=== PATIENT | female | born 1950 | race Caucasian/White ===

== ENCOUNTER → 2024-08-22 | Outpatient (CLI) | payer MEDICARE, BC, SELFPAY ==
[2024-08-22 08:27] LABS: Collection Type, Urine Clean Catch
[2024-08-22 08:53] LABS: Basophils % (Auto) 1 % (0-2.5); Eosinophils # (Auto) 0.2 Thou/mm3 (0.0-0.5); Eosinophils % (Auto) 3 % (0-10); Hematocrit 42.2 % (36.0-46.0); Immature Granulocytes % (Auto) 1 % (0-0); Immature Granulocytes Auto 0.05 Thou/mm3 (0.00-0.00); Lymphocytes % (Auto) 32 % (10-50); Mean Corpuscular HGB Conc 33.2 g/dl (31.0-37.0); Mean Corpuscular Hemoglobin 28.9 pg (25.0-35.0); Mean Corpuscular Volume 87 fL (80-100); Monocytes # (Auto) 0.4 Thou/mm3 (0.0-0.8); Monocytes % (Auto) 7 % (0-12); Neutrophils # (Auto) 3.6 Thou/mm3 (1.8-7.7); Neutrophils % (Auto) 57 % (37-80); Nucleated Red Blood Cell % 0 /100 WBC (0); Platelet Count 262 Thou/mm3 (140-440); RDW Standard Deviation 43.1 fL (36.4-46.3); Red Blood Count 4.84 Miln/mm3 (4.00-5.20); White Blood Count 6.4 Thou/mm3 (3.6-11.0)
[2024-08-22 09:05] LABS: Vitamin B12 1885 pg/mL (211-911); Vitamin D 25 Hydroxy Total 22.5 ng/mL (7.3-40.2)
[2024-08-22 09:07] LABS: Alanine Aminotransferase 18 U/L (10-49); Albumin, Serum 4.4 gm/dL (3.4-4.8); Albumin/Globulin Ratio 1.8 (1.2-2.2); Alkaline Phosphatase 82 U/L (46-116); Anion Gap 8 (7-16); Aspartate Amino Transferase 19 U/L (0-34); BUN/Creatinine Ratio 23 Ratio (12-20); Bilirubin,Total 0.5 mg/dL (0.3-1.2); Blood Urea Nitrogen 18 mg/dL (9-23); Calcium 9.4 mg/dL (8.3-10.6); Calcium (Corrected) 9.4 mg/dL (8.5-10.1); Carbon Dioxide 25.9 mMol/L (20.0-31.0); Cardiac Risk Estimate 4.4 RATIO (3.7-5.6); Chloride 107 mMol/L (98-107); Cholesterol 224 mg/dL (132-200); Creatinine (Component) 0.8 mg/dL (0.6-1.3); Free T4 (Free Thyroxine) 0.96 ng/dL (0.89-1.76); Globulin 2.5 gm/dL (2.3-3.5); Glucose 89 mg/dL (74-106); HDL Cholesterol 51 mg/dL (40-60); LDL Cholesterol,Calculated 143 mg/dL (0-130); Osmolality,Calculated 282 (275-295); Potassium 4.4 mMol/L (3.4-5.1); Sodium 141 mMol/L (136-145); Total Protein 6.9 gm/dL (5.7-8.2); Triglycerides 148 mg/dL (30-150); eGFR > 60 See Note
[2024-08-22 10:51] LABS: Bilirubin,Urine Negative (Negative); Blood,Urine Negative (Negative); Clarity,Urine Clear (Clear/Hazy); Color,Urine Lt-Yellow (Lt Yel-Yel); Culture Indicated,Urine Not Indicated; Glucose, Urine Negative (Negative); Ketones,Urine Negative (Negative); Leukocyte Esterase,Urine Negative (Negative); Nitrite,Urine Negative (Negative); PH,Urine 6.5 (5.0-7.0); Protein,Urine Negative (Neg - Trace); RBC,Urine 4 /hpf (0-3); Specific Gravity,Urine 1.021 (1.001-1.035); Squamous Epithelial Cell,Urine 3 /hpf (0-5); Urobilinogen,Urine Negative mg/dL (0.0-1.0); WBC,Urine 1 /hpf (0-5)
== END | disposition home or self-care (01) ==
LOC: COPL 07:51
PROVIDERS: PCP Internal Medicine; Referring Provider Internal Medicine; Visit Provider Internal Medicine
DX: Z00.00 Encounter for general adult medical examination without abnormal findings (principal); E78.5 Hyperlipidemia, unspecified; I10 Essential (primary) hypertension; R03.0 Elevated blood-pressure reading, without diagnosis of hypertension; D51.9 Vitamin B12 deficiency anemia, unspecified; E55.9 Vitamin D deficiency, unspecified
CPT/HCPCS: 36415; 80053; 80061; 81001; 82306; 82607; 84439; 84443; 85025

== ENCOUNTER → 2025-01-26 | Outpatient (CLI) | payer MEDICARE, BC, SELFPAY ==
--- NOTE | 2025-01-26 10:45 | XR_ITS ---
Examination: Right knee 2 views Technique one AP lateral right knee 2 views Date and time: January 26, 2025 1123 hours INDICATIONS: Chronic knee pain years. FINDINGS: Prominent osteopenia Moderate narrowing medial joint space Mild osteoarthritis patellofemoral joint Small knee effusion No fracture IMPRESSION: Moderate narrowing medial joint space
--- NOTE | 2025-01-26 10:45 | XR_ITS ---
Examination: Bilateral knees 2 views TECHNIQUE: Bilateral AP knees standing single view, bilateral PA knees standing single view flexion Date and time: January 26, 2025 1120 hours INDICATIONS: Chronic knee pain. FINDINGS: Prominent osteopenia Moderate narrowing medial joint space right knee Moderate to advanced narrowing medial joint space left knee No fractures IMPRESSION: Moderate to advanced narrowing medial joint space left knee
== END | disposition home or self-care (01) ==
LOC: CDIM 10:40
PROVIDERS: PCP Internal Medicine; Referring Provider Orthopaedic Surgery; Visit Provider Orthopaedic Surgery
DX: M25.862 Other specified joint disorders, left knee (principal); M25.861 Other specified joint disorders, right knee
CPT/HCPCS: 73560; 73565

== ENCOUNTER → 2025-03-09 | Outpatient (CLI) | payer MEDICARE, BC, SELFPAY ==
--- NOTE | 2025-03-09 09:00 | XR_ITS ---
Exam: MRI knee without contrast, right Date and time of exam: March 09, 2025 at 1046 hours Technique: Multiple axial, coronal, and sagittal sections on the knee have been obtained. T2-Weighted sagittal, fat-suppressed images, TR 3,500, TE 62, T2 weighted coronal fat-saturated images, TR 3,500, TE 62 Proton density sagittal sections, TR 1800, TE 31. T-1 weighted coronal images, TR 524, TE 13.0 Findings: Medial meniscus anterior horn intact. Medial meniscus, body intact. Posterior horn medial meniscus small vertical tear outer one half posterior horn sagittal image 11. Lateral meniscus anterior horn intrasubstance degeneration Lateral meniscus, body is intact Posterior horn lateral meniscus is intact Anterior cruciate ligament mild sprain Posterior cruciate ligament appears intact. Knee effusion is small. Quadriceps and patellar tendons appear intact. There is no evidence of tendinosis. Inflammatory change or fracture of Hoffa's fat pad is not seen. Medial patellar facet demonstrates moderate thinning. Lateral patellar facet cartilage demonstrates moderate thinning. Trochlear cartilage demonstrates moderate thinning. Marrow signal adequate. Medial collateral ligament appears intact. No meniscocapsular separation is seen. Illiotibial band and fibular collateral ligament are intact. Biceps femoris tendons appear intact. Medial femoral condylar articular cartilage demonstrates moderate thinning. Lateral femoral condylar articular cartilage demonstratesmoderate thinning. Tibial plateau cartilage demonstrates moderate thinning. Impression: Vertical tear posterior horn medial meniscus Mild sprain anterior cruciate ligament
== END | disposition home or self-care (01) ==
LOC: SMRI 08:49
PROVIDERS: PCP Internal Medicine; Referring Provider Orthopaedic Surgery; Visit Provider Orthopaedic Surgery
DX: S83.241A Other tear of medial meniscus, current injury, right knee, initial encounter (principal); X58.XXXA Exposure to other specified factors, initial encounter; S83.511A Sprain of anterior cruciate ligament of right knee, initial encounter
CPT/HCPCS: 73721

== ENCOUNTER → 2025-04-02 | Outpatient (CLI) | payer MEDICARE, BC, SELFPAY ==
--- NOTE | 2025-04-02 10:55 | XR_ITS ---
Examination: CT soft tissue neck, without intravenous contrast. 2-D coronal reconstructions. 2-D sagittal reconstructions. Date and time of exam :April 02, 2025 1124 hours INDICATIONS: Left-sided neck swelling and pain beginning 6 days ago. CTDI: vol (mGy):15 DLP: (mGycm):400 Technique: 1.25 mm axial sections of the neck of the obtained. Coronal sagittal reconstructions Low dose protocols were performed. One or more of the following dose reduction techniques were used; automated exposure control, adjustment of the mA and/or KV according to patient size, use of iterative reconstruction technique. Findings: Symmetrical nasopharynx oropharynx Maxillary antra are clear Artifacts, dental Solid appearing mass in the left parotid gland, 11 mm The larynx appears normal Multiple subcentimeter thyroid nodules Normal epiglottis Advanced diffuse cervical degenerative disc disease IMPRESSION: Recommend MRI soft tissue neck follow-up pre and postcontrast to assess solid appearing mass in the left parotid gland
== END | disposition home or self-care (01) ==
LOC: CCTX 10:50
PROVIDERS: PCP Internal Medicine; Referring Provider Internal Medicine; Visit Provider Internal Medicine
DX: I89.8 Other specified noninfective disorders of lymphatic vessels and lymph nodes (principal)
CPT/HCPCS: 70490

== ENCOUNTER 2025-06-18 08:16 | Outpatient (AMB) | payer MEDICARE, BC, SELFPAY ==
[2025-06-18 08:32] VITALS: BP 176/93; PULSE 72; RESP 19; TEMP 35.9; O2SAT 95; BMI 32.8
--- NOTE | 2025-06-18 08:32 | ORTHONT_ITS ---
Vital signs 06/18/25 08:32 Height 1.68 m Height Method Stated Weight 92.079 kg Weight Measurement Method Standing Scale BMI 32.8 BP 176/93 H Blood Pressure Source Automatic Cuff Blood Pressure Location Left Upper Arm Position Sitting Respiration 19 Pulse 72 Pulse Source Monitor Temp 96.6 F L Temp Source Temporal Artery Scan Pulse Oximetry (%) 95 Oxygen Delivery Method Room Air Med/Allergies Allergies & Medications Allergies codeine Allergy (Severe, Verified 06/18/25 08:33) Unknown nitrofurantoin (From Macrobid) Allergy (Severe, Verified 06/18/25 08:33) Rash Medication Reconciliation A-F Betafood 2 cap PO TID 03/14/24 [History Confirmed 06/18/25] B6-Niacinamide 1 tab PO QDAY 03/14/24 [History Confirmed 06/18/25] Cardio-Plus 2 cap PO TID 03/14/24 [History Confirmed 06/18/25] Carditone 1 tab PO BID 03/14/24 [History Confirmed 06/18/25] Cataplex D 2 cap PO QDAY 03/14/24 [History Confirmed 06/18/25] Cataplexb2 2 cap PO TID 03/14/24 [History Confirmed 06/18/25] Immune Charge 1 cap PO BID 03/14/24 [History Confirmed 06/18/25] Iodoral 1 tab PO BID 03/14/24 [History Confirmed 06/18/25] Livit-2 1 tab PO TID 03/14/24 [History Confirmed 06/18/25] [place] 7 2 cap PO QDAY 03/14/24 [History Confirmed 06/18/25] Shilajeet Mumiyo 1 tab PO BID 03/14/24 [History Confirmed 06/18/25] Supramag 1 cap PO TID 03/14/24 [History Confirmed 06/18/25] astaxanthin 12 mg capsule 12 mg PO BID 03/14/24 [History Confirmed 06/18/25] coenzyme B51-[id number] E 100 mg-100 unit capsule 1 cap PO BID 03/14/24 [History Confirmed 06/18/25] digestive enzymes 1 cap PO BIDWMEAL 03/14/24 [History Confirmed 06/18/25] multivitamin 2 cap PO QDAY 03/14/24 [History Confirmed 06/18/25] progesterone 50 mg/mL intramuscular oil 50 mg QDAY 03/14/24 [History Confirmed 06/18/25] selenium 100 mcg tablet 100 mcg PO BID 03/14/24 [History Confirmed 06/18/25] thyroid (pork) 48.75 mg tablet 40 mg PO BID 03/14/24 [History Confirmed 06/18/25] Exam Exam Patient is in no acute distress and is cooperative with the examination today. Breathing is nonlabored. In no respiratory distress. Bilateral extremities were evaluated and demonstrates sensation intact to light touch. Palpable pedal pulses are present. No significant edema is present. Bilateral hips were examined. The patient has no pain with log roll of the hips. Internal rotation to 30 degrees and external rotation to 30 degrees is painless. Negative FADIR. The left knee was examined. The left knee is in varus alignment. Range of motion from 0-115 degrees. Knee is stable to varus and valgus as well as AP translation with <5mm. Patient has a negative McMurrays. There is no pain with patellofemoral compression and no crepitus noted. The knee is tender to palpation medially. The right knee was also examined. The right knee is in varus alignment. Range of motion from 0-120 degrees. Knee is stable to varus and valgus as well as AP translation with <5mm. Patient has a negative McMurrays. There is no pain with patellofemoral compression and no crepitus noted. The knee is tender to palpation medially. X-rays demonstrate moderate arthritis. She has an MRI of her right knee which demonstrates a meniscal tear of the lateral meniscus Assessment and Plan Problem List (1) Arthritis of both knees: Status: Acute Plan: Patient is a 75-year-old female with right knee pain and arthritis of the right knee. She has tried a prior gel injection ASSESSMENT AND PLAN 1. Right knee pain: The right knee pain began in January 2025 without any trauma. Imaging, including standing x-rays from 01/26/2025 and an MRI from 02/2025, shows moderate a rthritis and a meniscus tear. The pain is described as shooting and radiates, especially when sitting for long periods. The pain is located on the anterolateral side of the knee and is associated with swelling and clicking. The patient has tried Hymovis injections and diclofenac 50 mg pills, which provided some relief. She also uses heat, ice, and elevation for pain management. Arthroscopic surgery is not recommended due to the extent of arthritis. A cortisone injection will be administered today to reduce inflammation and improve motion. Diclofenac cream (Voltaren) is recommended as an alternative to oral diclofenac to avoid systemic side effects. The patient is advised to use ice for swelling and heat in the beginning of the day. Compression hose is recommended for support instead of a brace, which may cause constriction and swelling. A home exercise program and physical therapy will be prescribed to improve motion. Recommended exercises include using an elliptical, recumbent bike, and flat ground walking. If these measures do not provide sufficient relief, surgical options may be considered. Meloxicam is suggested as an alternative oral medication for arthritis if needed. A Harrison x-ray view may be ordered to get more information on the knee's condition. Recommend knee cortisone injection as patient would like to proceed with conservative treatment at this time. The risks and benefits of the procedure were reviewed with the patient and patient gave verbal consent to continue with the procedure. Procedure: performed by Dr. Cage Using sterile technique the Right knee was thoroughly prepped with alcohol, and approximately 1 cc of Depo-Medrol 80mg/mL and 4 cc of 0.2% ropivacaine was injected without resistance into the medial tibial femoral joint space. The patient tolerated the procedure. (2) Pain in right knee: Status: Acute Advanced Care Planning Discussion Advance care planning discussed with:: patient Office Procedures GNS Level of Care Nursing/Assessment Patient Status: Initial/New Patient Nursing Assessment/Reassesment: Medication Reconciliation, Update PMH in EMR and Vital Signs Coordination of Care: Complex Care and Chronic Disease 1-5, Education Complex Pt/Fam, Consent,records obtained, informed consent, 1 Ins Authorization, Lab and Imaging orders, Results/Orders obtained and Staff clarify orders New Patient Charge New Patient Point Assignment: 1124 New Patient Point Charge: PHARMACY TEACHER Level 4 (2616-1881) Surgical Proc/IM SQ injection Minor Surgical Procedure: Yes (RIGHT KNEE INJECTION) Medication Given Medication Given Medication Given: Yes Documented Dose Given: 1 Route: Infiitration Medication Given Medication Given Medication Given: Yes Documented Dose Given: 4 Route: Infiitration Office Meds methylprednisolone acetate 80 mg/mL suspension for injection Performing Provider: Joaquin Cage MD Performing Location: [facility] Administered by: Joaquin Cage MD on 06/18/25 08:55 Dose Route Admin Location Dispensed Lot Number Expiration Date Pack age [facility] Marker Hand 80 mg intra-articular 1 mL [id number] 03/18/27 [address]-1 7 [id number] [employer] ropivacaine (PF) 2 mg/mL (0.2 %) injection solution Performing Provider: Joaquin Cage MD Performing Location: [facility] Administered by: Joaquin Cage MD on 06/18/25 08:55 Dose Route Admin Location Dispensed Lot Number Expiration Date Pack age [facility] [place] Marker Hand 20 mL Infiltration 20 mL [id number] 09/18/27 22950-884-11 [id number] [facility] Intake Visit Data Collection New Patient or Established: New Patient (never been to [facility]) Reason for Visit:: RIGHT KNEE OA Seen by Clinical Staff ONLY (RN/MA): No PCP or OBGYN visit in last 3 months: Yes Hx Now: No Do You Feel Safe at Home: Yes Authorities Contacted: N/A Questionairres Past Medical History Past Medical History Have you ever been diagnosed with any of the following: Neurological Problems Seizures: No Cardiology Problems Congestive Heart Failure: No Valvular Heart Disease: Yes (mitral valve prolapse) Hypertension: No Respiratory Problems Chronic Obstructive Pulmonary Disease (COPD): No Asthma: No Bronchitis: No Emphysema: No Pneumonia: No Pulmonary Fibrosis: No Tuberculosis: No Pulmonary Embolism: No Pulmonary Edema: No Sleep Apnea: No CPAP Dependent: No Respiratory Aspiration: No Dyspnea: No Orthopnea: No Hx Cough: No Cough: No Wheezing: No Chest Deformities: No Smoking: No Smoking Cessation Counseling: No Smoking Exposure: No Tobacco Use: No Clubbing: No Exposure to Respiratory Irritants: No Intubation: No Stomache/Intestinal Problems Liver Cancer: No Hepatitis: No Cirrhosis: No Pancreatic Cancer: No Celiac Disease: No Gall Bladder Disease: No Gastrointestinal Bleed: No Esophageal Varices: No Gupta's Esophagus: No Colitis: No Ulcerative Colitis: No Diverticulitis: No Diverticulosis: No Ulcer: No Colorectal Cancer: No Irritable Bowel: No Crohn's Disease: No Obstructive Bowel: No Hiatal Hernia: No Hemorrhoids: Yes Gastroesophageal Reflux Disease: No Polyps: No Obesity: Yes Genital/Urinary Problems Chronic Kidney Disease: No Renal Disease: No Kidney Stones: Yes (many yrs ago) Polycystic Kidney Disease: No Neurogenic Bladder: No Inguinal Hernia: No Dialysis: No Reproductive Problems Previous Pregnancies: Yes Musculoskeletal Problems Arthritis: No Head,Eye,Nose,Throat Problems Cataracts: Yes (bilateral) Endocrine Problems Diabetes Mellitus Type 1: No Diabetes Mellitus Type 2: No Hypothyroidism: Yes (being monitor no meds) Blood Problems Anemia: Yes (yrs ago) Other Problems Hospitalization: No Shingles: No Falls: No Blood Transfusions: No Blood Transfusion Reaction: No Anesthesia Reactions: No Chemotherapy: No Radiation Therapy: No MRSA: No Chicken Pox: Yes Measles: Yes Cancer: Yes Subjective Visit Visit for: new patient, knee (RIGHT), x-rays (RESULTS) and MRI (RESULTS) Immunization / Flu Flu Vaccine in the Last 12 Months: No Flu Vaccine Exclusion Criteria: Refused by Patient History of Present Illness Chief complaint: RIGHT KNEE OA Date of injury / onset of symptoms: JANUARY 2025 Date of 1st surgery (if applicable): LEFT KNEE MENISCUS REPAIR HISTORY OF PRESENT ILLNESS IJoaquin, have obtained verbal consent from the patient, to be recorded during this encounter which may include, but not limited to, medical history, examination, treatment plans, and relevant health information.? Patient was informed that recording will be read and reviewed by myself before inclusion in the medical chart. The patient presents for evaluation of right knee pain. Ketty is a pleasant 75-year-old female with right knee pain. she reports that the onset of her right knee pain was in 01/2025, with no preceding trauma. The pain is described as shooting and radiating up and down her leg, particularly when sitting for extended periods. She also experiences swelling and clicking on the anterolateral side of the knee. Her left knee has also started to hurt. She has been managing the pain with heat, ice, and elevation. She has been using a brace for support but notes that it causes swelling and discomfort. She has not tried cortisone injections or diclofenac cream before. She has been taking diclofenac since 01/2025 and wishes to discontinue it. She has received two Hymovis injections from Dr. Wells, the first on 03/25/2025, and the second on 04/08/2025, which were postponed due to a parotid infection. She has undergone imaging studies including standing x-rays on 01/26/2025 and an MRI in 02/2025. She has a history of left knee meniscus repair. She has been prescribed meloxicam but prefers not to use it. She has a history of a root canal procedure, which has been aiding her sleep. PAST SURGICAL HISTORY: Left knee meniscus repair. Personal History Occupation: RETIRED Hobbies: [employer] Pain Pain level (0-10): 6 Pain duration: COMES AND GOES Pain location: outside (lateral) and anterior Pain quality: dull, aching and other (specify) (SWELLING) Pain timing: night and increases with activity Associated signs & symptoms: other (specify) (CLICKING) Ambulatory data Ambulatory device: none Treatments Number of previous injections: 2 Improvement with previous injections: No Number of Physical Therapy sessions: 0 Improvement with PT: No Improvement with NSAIDS: yes (DICLOFENAC 50MG) Review of Systems Review of Systems: All systems negative unless otherwise noted in HPI.
== END 2025-06-18 08:53 | disposition home or self-care (01) ==
LOC: HODSRG 08:16
PROVIDERS: PCP Internal Medicine; Referring Provider Internal Medicine; Supervising Provider Orthopaedic Surgery Adult Reconstructive Orthopaedic Surgery; Visit Provider Orthopaedic Surgery Adult Reconstructive Orthopaedic Surgery
DX: M25.561 Pain in right knee (principal); M17.0 Bilateral primary osteoarthritis of knee; E66.9 Obesity, unspecified; Z68.32 Body mass index [BMI] 32.0-32.9, adult
CPT/HCPCS: 20610; 99204; J1010; J2795; G0463

== ENCOUNTER 2025-07-09 08:38 | Outpatient (AMB) | payer MEDICARE, BC, SELFPAY ==
--- NOTE | 2025-07-09 08:46 | PD.ORTHCLVIS ---
Vital signs 07/09/25 08:51 Height 1.68 m Height Method Measured Weight 89.84 kg Weight Measurement Method Standing Scale BMI 31.8 BP 163/75 H Blood Pressure Source Automatic Cuff Blood Pressure Location Left Upper Arm Position Sitting Respiration 18 Pulse 65 Pulse Source Monitor Temp 96.4 F L Temp Source Temporal Artery Scan Pulse Oximetry (%) 97 Oxygen Delivery Method Room Air Med/Allergies Allergies & Medications Allergies codeine Allergy (Severe, Verified 07/09/25 08:52) Unknown nitrofurantoin (From Macrobid) Allergy (Severe, Verified 07/09/25 08:52) Rash Medication Reconciliation A-F Betafood 2 cap PO TID 03/14/24 [History Confirmed 07/09/25] B6-Niacinamide 1 tab PO QDAY 03/14/24 [History Confirmed 07/09/25] Cardio-Plus 2 cap PO TID 03/14/24 [History Confirmed 07/09/25] Carditone 1 tab PO BID 03/14/24 [History Confirmed 07/09/25] Cataplex D 2 cap PO QDAY 03/14/24 [History Confirmed 07/09/25] Cataplexb2 2 cap PO TID 03/14/24 [History Confirmed 07/09/25] Immune Charge 1 cap PO BID 03/14/24 [History Confirmed 07/09/25] Iodoral 1 tab PO BID 03/14/24 [History Confirmed 07/09/25] Livit-2 1 tab PO TID 03/14/24 [History Confirmed 07/09/25] Eaton 7 2 cap PO QDAY 03/14/24 [History Confirmed 07/09/25] Shilajeet Mumiyo 1 tab PO BID 03/14/24 [History Confirmed 07/09/25] Supramag 1 cap PO TID 03/14/24 [History Confirmed 07/09/25] astaxanthin 12 mg capsule 12 mg PO BID 03/14/24 [History Confirmed 07/09/25] coenzyme [id number]-[id number] E 100 mg-100 unit capsule 1 cap PO BID 03/14/24 [History Confirmed 07/09/25] digestive enzymes 1 cap PO BIDWMEAL 03/14/24 [History Confirmed 07/09/25] multivitamin 2 cap PO QDAY 03/14/24 [History Confirmed 07/09/25] progesterone 50 mg/mL intramuscular oil 50 mg QDAY 03/14/24 [History Confirmed 07/09/25] selenium 100 mcg tablet 100 mcg PO BID 03/14/24 [History Confirmed 07/09/25] thyroid (pork) 48.75 mg tablet 40 mg PO BID 03/14/24 [History Confirmed 07/09/25] Exam Exam Patient is in no acute distress and is cooperative with the examination today. Breathing is nonlabored. In no respiratory distress. Bilateral extremities were evaluated and demonstrates sensation intact to light touch. Palpable pedal pulses are present. No significant edema is present. Bilateral hips were examined. The patient has no pain with log roll of the hips. Internal rotation to 30 degrees and external rotation to 30 degrees is painless. Negative FADIR. The left knee was examined. The left knee is in varus alignment. Range of motion from 0-115 degrees. Knee is stable to varus and valgus as well as AP translation with <5mm. Patient has a negative McMurrays. There is no pain with patellofemoral compression and no crepitus noted. The knee is tender to palpation medially. The right knee was also examined. The right knee is in varus alignment. Range of motion from 0-120 degrees. Knee is stable to varus and valgus as well as AP translation with <5mm. Patient has a negative McMurrays. There is no pain with patellofemoral compression and no crepitus noted. The knee is tender to palpation medially. X-rays demonstrate moderate arthritis. She has an MRI of her right knee which demonstrates a meniscal tear of the lateral meniscus Assessment and Plan Problem List (1) Arthritis of both knees: Status: Acute Plan: Patient is a 75-year-old female with right knee pain and arthritis of the right knee. She has tried a prior gel injection ASSESSMENT AND PLAN 1. Right knee pain: The patient reports that her pain is improved as well as her range of motion. She should continue physical therapy and continue with anti-inflammatories as needed. At this point we can see her on an as-needed basis (2) Pain in right knee: Status: Acute Advanced Care Planning Discussion Advance care planning discussed with:: patient Office Procedures GNS Level of Care Nursing/Assessment Patient Status: Established Patient Nursing Assessment/Reassesment: Medication Reconciliation, Update PMH in EMR and Vital Signs Coordination of Care: Complex Care and Chronic Disease 1-5, Education Complex Pt/Fam, Consent,records obtained, informed consent, Results/Orders obtained and Staff clarify orders Established Patient Charge Established Patient Point Assignment: 95 Established Patient Point Charge: EP Level 3 (80-115) MA Intake Visit Data Collection New Patient or Established: Established Patient (seen at [facility] within 3 years) Reason for Visit:: F/U KNEE INJECTION Seen by Clinical Staff ONLY (RN/MA): No Scientific Systems Analyst Required: No PCP or OBGYN visit in last 3 months: Yes Hx Now: No Do You Feel Safe at Home: Yes Authorities Contacted: N/A Questionairres Past Medical History Past Medical History Have you ever been diagnosed with any of the following: Neurological Problems Seizures: No Cardiology Problems Congestive Heart Failure: No Valvular Heart Disease: Yes (mitral valve prolapse) Hypertension: No Respiratory Problems Chronic Obstructive Pulmonary Disease (COPD): No Asthma: No Bronchitis: No Emphysema: No Pneumonia: No Pulmonary Fibrosis: No Tuberculosis: No Pulmonary Embolism: No Pulmonary Edema: No Sleep Apnea: No CPAP Dependent: No Respiratory Aspiration: No Dyspnea: No Orthopnea: No Hx Cough: No Cough: No Wheezing: No Chest Deformities: No Smoking: No Smoking Cessation Counseling: No Smoking Exposure: No Tobacco Use: No Clubbing: No Exposure to Respiratory Irritants: No Intubation: No Stomache/Intestinal Problems Liver Cancer: No Hepatitis: No Cirrhosis: No Pancreatic Cancer: No Celiac Disease: No Gall Bladder Disease: No Gastrointestinal Bleed: No Esophageal Varices: No Gupta's Esophagus: No Colitis: No Ulcerative Colitis: No Diverticulitis: No Diverticulosis: No Ulcer: No Colorectal Cancer: No Irritable Bowel: No Crohn's Disease: No Obstructive Bowel: No Hiatal Hernia: No Hemorrhoids: Yes Gastroesophageal Reflux Disease: No Polyps: No Obesity: Yes Genital/Urinary Problems Chronic Kidney Disease: No Renal Disease: No Kidney Stones: Yes (many yrs ago) Polycystic Kidney Disease: No Neurogenic Bladder: No Inguinal Hernia: No Dialysis: No Reproductive Problems Previous Pregnancies: Yes Musculoskeletal Problems Arthritis: No Head,Eye,Nose,Throat Problems Cataracts: Yes (bilateral) Endocrine Problems Diabetes Mellitus Type 1: No Diabetes Mellitus Type 2: No Hypothyroidism: Yes (being monitor no meds) Blood Problems Anemia: Yes (yrs ago) Other Problems Hospitalization: No Shingles: No Falls: No Blood Transfusions: No Blood Transfusion Reaction: No Anesthesia Reactions: No Chemotherapy: No Radiation Therapy: No MRSA: No Chicken Pox: Yes Measles: Yes Cancer: Yes Subjective Visit Visit for: follow up visit and knee Immunization / Flu Flu Vaccine in the Last 12 Months: No Flu Vaccine Exclusion Criteria: Refused by Patient History of Present Illness Chief complaint: F/U KNEE INJECTION Date of injury / onset of symptoms: JANUARY 2025 Date of 1st surgery (if applicable): LEFT KNEE MENISCUS REPAIR HISTORY OF PRESENT ILLNESS IJoaquin, have obtained verbal consent from the patient, to be recorded during this encounter which may include, but not limited to, medical history, examination, treatment plans, and relevant health information.? Patient was informed that recording will be read and reviewed by myself before inclusion in the medical chart. The patient presents for evaluation of right knee pain. Ketty is a pleasant 75-year-old female with right knee pain. she reports that the onset of her right knee pain was in 01/2025, with no preceding trauma. The pain is described as shooting and radiating up and down her leg, particularly when sitting for extended periods. She also experiences swelling and clicking on the anterolateral side of the knee. Her left knee has also started to hurt. She has been managing the pain with heat, ice, and elevation. She has been using a brace for support but notes that it causes swelling and discomfort. She has not tried cortisone injections or diclofenac cream before. She has been taking diclofenac since 01/2025 and wishes to discontinue it. She has received two Hymovis injections from Dr. Wells, the first on 03/25/2025, and the second on 04/08/2025, which were postponed due to a parotid infection. She has undergone imaging studies including standing x-rays on 01/26/2025 and an MRI in 02/2025. She has a history of left knee meniscus repair. She has been prescribed meloxicam but prefers not to use it. She has a history of a root canal procedure, which has been aiding her sleep. Since we last saw her, and reports the pain has significantly improved. She is very happy PAST SURGICAL HISTORY: Left knee meniscus repair. Personal History Occupation: RETIRED Hobbies: [employer] Pain Pain level (0-10): 6 Pain duration: COMES AND GOES Pain location: outside (lateral) and anterior Pain quality: dull, aching and other (specify) (SWELLING) Pain timing: night and increases with activity Associated signs & symptoms: other (specify) (CLICKING) Ambulatory data Ambulatory device: none Treatments Number of previous injections: 2 Improvement with previous injections: No Number of Physical Therapy sessions: 0 Improvement with PT: No Improvement with NSAIDS: yes (DICLOFENAC 50MG) Review of Systems Review of Systems: All systems negative unless otherwise noted in HPI.
[2025-07-09 08:51] VITALS: BP 163/75; PULSE 65; RESP 18; TEMP 35.8; O2SAT 97; BMI 31.8
== END 2025-07-09 09:41 | disposition home or self-care (01) ==
LOC: HODSRG 08:38
PROVIDERS: PCP Internal Medicine; Referring Provider Internal Medicine; Supervising Provider Orthopaedic Surgery Adult Reconstructive Orthopaedic Surgery; Visit Provider Orthopaedic Surgery Adult Reconstructive Orthopaedic Surgery
DX: M25.561 Pain in right knee (principal); M17.0 Bilateral primary osteoarthritis of knee; E66.9 Obesity, unspecified; Z68.31 Body mass index [BMI] 31.0-31.9, adult
CPT/HCPCS: 99213; G0463